=== PATIENT | female | born 1970 | race Caucasian/White ===

== ENCOUNTER 2023-01-05 07:25 | Day surgery (SDC) | payer MEDICAID ==
[~2023-01-05] VITALS: Ht 172.7 cm; Wt 98.9 kg
[2023-01-05 07:57] LABS: HCG,QUAL RESULT NEGATIVE (NEGATIVE)
[2023-01-05 08:00] VITALS: O2SAT 98
[2023-01-05] MEDS ORDERED: MEPERIDINE 100 MG INJ. 100 MG/ML VIAL ONE (09:52)
[2023-01-05] MEDS ORDERED: MIDAZOLAM HCL 5 MG/5 ML VIAL ONE ×2 (09:53→10:18)
[2023-01-05] MEDS ORDERED: BENZOCAINE 20% 0.5mL UD SPRAY MM ONE (09:55)
[2023-01-05] MEDS ORDERED: ONDANSETRON HCL 4 MG/2 ML VIAL ONE (10:33)
[2023-01-05 15:06] VITALS: BP_SYST 117; PULSE 74; RESP 12
== END 2023-01-05 11:37 | disposition home or self-care (01) ==
LOC: SDS 07:25 → SMU 07:27 → SDS 11:37
PROVIDERS: ATTEND Internal Medicine
DX: R10.9 Unspecified abdominal pain (principal); D12.2 Benign neoplasm of ascending colon; K64.8 Other hemorrhoids; K29.50 Unspecified chronic gastritis without bleeding; Z86.010 Personal history of colon polyps; K44.9 Diaphragmatic hernia without obstruction or gangrene; Z98.84 Bariatric surgery status; M19.90 Unspecified osteoarthritis, unspecified site; Z79.01 Long term (current) use of anticoagulants; Z79.899 Other long term (current) drug therapy
CPT/HCPCS: 45380; 45385; 43239; 84703; 88305; 88312; 88313; 99153; 99152; G0378; J2250; J2405; J2175

== ENCOUNTER 2023-06-28 08:14 | Day surgery (SDC) | payer OTHER, MEDICAID ==
[~2023-06-28] VITALS: Ht 172.7 cm; Wt 99.8 kg
[2023-06-28] MEDS ORDERED: DEXAMETHASONE SOD PHOSPHATE 4 MG/ML VIAL ONE (09:00)
[2023-06-28] MEDS ORDERED: LIDOCAINE 2%, 20 ML MDV ONE (09:00)
[2023-06-28] MEDS ORDERED: IOHEXOL 300 mgI/mL, 50 mL INFUS..BTL IV ONE (09:00)
[2023-06-28] MEDS ORDERED: NORMAL SALINE 10 ML VIAL ONE (09:00)
[2023-06-28 09:47] LABS: HCG,QUAL RESULT NEGATIVE (NEGATIVE)
[2023-06-28] MEDS ORDERED: DIPHENHYDRAMINE INJ 50 MG/ML VIAL ONE (10:15)
[2023-06-28] MEDS: fentaNYL CITRATE/PF 100 MCG/2 ML AMP ONE (11:30)
[2023-06-28] MEDS: MIDAZOLAM HCL 5 MG/5 ML VIAL ONE (11:31)
[2023-06-28 15:16] VITALS: O2SAT 100
[2023-06-28 16:18] VITALS: BP_SYST 102; PULSE 62; RESP 16
== END 2023-06-28 12:30 | disposition home or self-care (01) ==
LOC: SDS 08:14 → SMU 08:15 → SDS 12:30
PROVIDERS: ATTEND Internal Medicine
DX: M51.16 Intervertebral disc disorders with radiculopathy, lumbar region (principal); M50.90 Cervical disc disorder, unspecified, unspecified cervical region; M79.10 Myalgia, unspecified site; M96.1 Postlaminectomy syndrome, not elsewhere classified; Z79.01 Long term (current) use of anticoagulants; Z90.49 Acquired absence of other specified parts of digestive tract; Z98.890 Other specified postprocedural states; Z79.899 Other long term (current) drug therapy
CPT/HCPCS: 64483; 84703; J1100; J2250; J3010; Q9967; 76000; J1200; J2001

== ENCOUNTER 2023-11-22 10:52 | Day surgery (SDC) | payer OTHER, MEDICAID ==
[~2023-11-22] VITALS: Ht 172.7 cm; Wt 101.2 kg
[2023-11-22] MEDS ORDERED: fentaNYL CITRATE/PF 100 MCG/2 ML AMP ONE (11:35)
[2023-11-22] MEDS ORDERED: MIDAZOLAM HCL 5 MG/5 ML VIAL ONE (11:36)
[2023-11-22 11:41] LABS: HCG,QUAL RESULT NEGATIVE (NEGATIVE)
[2023-11-22] MEDS ORDERED: LIDOCAINE 2%, 20 ML MDV ONE (12:00)
[2023-11-22] MEDS: MIDAZOLAM HCL 5 MG/5 ML VIAL IVP ONE (12:50)
[2023-11-22 14:29] VITALS: BP_SYST 113; PULSE 63; RESP 18; TEMP 96.8; O2SAT 100
== END 2023-11-22 13:58 | disposition home or self-care (01) ==
LOC: SDS 10:52 → SMU 10:54 → SDS 13:58
PROVIDERS: ATTEND Internal Medicine
DX: M51.16 Intervertebral disc disorders with radiculopathy, lumbar region (principal); G43.909 Migraine, unspecified, not intractable, without status migrainosus; M79.7 Fibromyalgia; Z90.49 Acquired absence of other specified parts of digestive tract; Z98.84 Bariatric surgery status; Z98.890 Other specified postprocedural states; Z79.899 Other long term (current) drug therapy
CPT/HCPCS: 64483; 84703; J2250; J3010; Q9967; 76000; J2001